=== PATIENT | female | born 1950 | race Caucasian/White ===

== ENCOUNTER 2018-04-03 12:59 | Outpatient (CLI) | payer MEDICARE | END 2018-04-03 13:00 | disposition home or self-care (01) | LOC: BICMAMMO 12:59 | PROVIDERS: ATTEND Internal Medicine Geriatric Medicine | DX: Z12.31 Encounter for screening mammogram for malignant neoplasm of breast (principal); R92.1 Mammographic calcification found on diagnostic imaging of breast; Z80.3 Family history of malignant neoplasm of breast | CPT/HCPCS: 77063; 77067 ==

== ENCOUNTER 2018-12-10 14:01 | Outpatient (CLI) | payer MEDICARE, OTHER ==
--- NOTE | 2018-12-10 14:43 | CT ---
CT OF THE ABDOMEN AND PELVIS WITHOUT CONTRAST: COMPARISON: None. HISTORY: Upper abdominal pain. TECHNIQUE: Multiple contiguous axial images were obtained in a CT of the abdomen and pelvis without contrast. C oronal reformats were performed. FINDINGS: There is a subtle hypodensity in the lower right lobe of the liver which is subcentimeter in size and too small to definitely characterize without IV contrast. The gallbladder, kidneys, adrenal glands, spleen, and pancreas are unremarkable, although evaluation is limited without IV contrast. No free air, free fluid, or stranding changes were seen in the abdomen or pelvis. The reproductive organs are unremarkable. The large and small bowel are unremarkable. The appendix is normal. Atherosclerotic calcifications are seen in the aorta. There is a small hiatal hernia. N o abdominal or pelvic lymphadenopathy are seen. Degenerative changes are seen in the spine. The visualized inferior thorax and abdominal wall soft t issues are unremarkable. IMPRESSION: 1. No evidence of acute intraabdominal/pelvic abnormality. 2. Nonspecific hypodensity in the right lobe of the liver. If clinically concerned or the patient h as elevated liver function tests, then a CT of the abdomen per liver mass protocol should be performe d for further evaluation. POS: SOFYA
== END 2018-12-10 14:02 | disposition home or self-care (01) ==
LOC: BICCT 14:01
PROVIDERS: ATTEND Internal Medicine Geriatric Medicine
DX: R10.30 Lower abdominal pain, unspecified (principal); K76.89 Other specified diseases of liver
CPT/HCPCS: 74176

== ENCOUNTER 2018-12-31 09:53 | Outpatient (CLI) | payer MEDICARE, OTHER ==
--- NOTE | 2018-12-31 11:27 | CT ---
CT ABDOMEN WITH AND WITHOUT IV CONTRAST CT PELVIS WITH IV CONTRAST: Date: 12/31/18 HISTORY: Hepatomegaly. Liver lesion on noncontrast exam of 12/10/18. Upper abdominal pain. COMPARISON: CT abdomen and pelvis without contrast of 12/10/18. FINDINGS: The lung bases are unremarkable. A small hiatal hernia is present. No calcified gallstones are noted. The spleen, pancreas, adrenal glands, and kidneys are normal. There is a retroaortic left renal vein . A 1.0 cm low density lesion is seen in the right lobe of the liver. No postcontrast enhancement is se en. This is consistent with a benign cyst. No free air, free fluid, or lymphadenopathy seen in the abdomen or pelvis. There are vascular calcifi cations without evidence of aneurysmal dilatation of the abdominal aorta. The small bowel loops are n ot abnormally dilated. A normal appearing appendix is seen. Uterus and ovaries are present. There are degenerative changes in the spine. IMPRESSION: 1. Small cyst in right lobe of liver. 2. Small hiatal hernia. POS: TPC
[2018-12-31] MEDS ORDERED: ISOVUE-370 76%-LOCM 1 ML ONE (14:37)
== END 2018-12-31 09:54 | disposition home or self-care (01) ==
LOC: BICCT 09:53
PROVIDERS: ATTEND Internal Medicine Geriatric Medicine
DX: R16.0 Hepatomegaly, not elsewhere classified (principal); K76.89 Other specified diseases of liver; K44.9 Diaphragmatic hernia without obstruction or gangrene
CPT/HCPCS: 72193; 74170; Q9966

== ENCOUNTER 2019-01-19 10:08 | Outpatient (CLI) | payer MEDICARE, OTHER ==
--- NOTE | 2019-01-19 11:02 | ULT ---
Abdominal Ultrasound: Multiple grayscale images of right upper quadrant obtained according to protocol. INDICATION: Pain, pancreatitis FINDINGS: Liver: Increased echogenicity, without focal lesion evident Gallbladder: Normal Gallbladder wall: Normal. Godoy's Sign: Negative Common bile duct is normal. Ascites: None Spleen: Unremarkable. Pancreas: Partially obscured by bowel content, limiting assessment. Kidneys: No acute abnormalities. Aorta/IVC: No acute process. IMPRESSION: No acute abnormalities. Increased echogenicity of the liver which may relate to hepatic steatosis.
== END 2019-01-19 10:09 | disposition home or self-care (01) ==
LOC: ULT 10:08
PROVIDERS: ATTEND Internal Medicine
DX: K85.10 Biliary acute pancreatitis without necrosis or infection (principal); R94.5 Abnormal results of liver function studies; R93.2 Abnormal findings on diagnostic imaging of liver and biliary tract
CPT/HCPCS: 76700

== ENCOUNTER 2020-05-30 10:45 | Outpatient (CLI) | payer MEDICARE, OTHER ==
--- NOTE | 2020-05-30 11:31 | BD ---
EXAM: DEXA bone density examination HISTORY: 70-year-old postmenopausal female for screening COMPARISON: None FINDINGS: L1--bone mineral density 0.712 g/sq cm; T score -2.5 L2--bone mineral density 0.799 g/sq cm; T score -2.1 L3--bone mineral density 0.748 g/sq cm; T score -3.1 L4--bone mineral density 0.766 g/sq cm; T score -2.7 Total L1-L4--bone mineral density 0.758 g/sq cm; T score -2.6 Left femoral neck--bone mineral density0.596; T score -2.3 Total proximal left femur--bone mineral density 0.756; T score -1.6 IMPRESSION: Osteoporosis.
--- NOTE | 2020-05-30 12:09 | MMO ---
Bilateral MAMMO Bilat Screen [facility]. CLINICAL HISTORY: Patient is 70 years old and is seen for screening. The patient has the following family history of breast cancer: mother, at age 72. The patient has no personal history of cancer. VIEWS: The views performed were: bilateral craniocaudal with tomosynthesis and bilateral mediolateral oblique with tomosynthesis. FILMS COMPARED: The present examination has been compared to a prior imaging study performed at [facility] on 04/03/2018. This study has been interpreted with the assistance of computer-aided detection. MAMMOGRAM FINDINGS: There are scattered fibroglandular densities. 10 mm nodule inner lower left breast, best seen on tomosynthesis. Recommend diagnostic left breast exam. In the right breast, there are no suspicious masses, calcifications or areas of architectural distortion. IMPRESSION: FINDING IN THE LEFT BREAST REQUIRES ADDITIONAL EVALUATION. ADDITIONAL IMAGING. THE RESULTS OF THIS EXAM WERE SENT TO THE PATIENT. ACR BI-RADS Category 0 - Incomplete: Need additional imaging evaluation. [facility] will notify the patient of the need for additional imaging services. MAMMOGRAPHY NOTE: 1. A negative mammogram report should not delay a biopsy if a dominant of clinically suspicious mass is present. 2. Approximately 10% to 15% of breast cancers are not detected by mammography. 3. Adenosis and dense breasts may obscure an underlying neoplasm. Reported by: RENEE ADKINS MD Electonically Signed: [id number]
== END 2020-05-30 10:46 | disposition home or self-care (01) ==
LOC: BICMAMMO 10:45
PROVIDERS: ATTEND Family Medicine
DX: Z12.31 Encounter for screening mammogram for malignant neoplasm of breast (principal); M81.6 Localized osteoporosis [Lequesne]; Z80.3 Family history of malignant neoplasm of breast
CPT/HCPCS: 77063; 77067; 77080

== ENCOUNTER 2020-06-02 09:34 | Outpatient (CLI) | payer MEDICARE, OTHER ==
--- NOTE | 2020-06-02 10:15 | MMO ---
Left Breast MAMMO Unilat Diag [facility]. CLINICAL HISTORY: Patient is 70 years old and is seen for additional evaluation requested from prior study. The patient has the following family history of breast cancer: mother, at age 72. The patient has no personal history of cancer. VIEWS: The views performed were: left craniocaudal spot compression with tomosynthesis; left mediolateral oblique spot compression with tomosynthesis; and left mediolateral with tomosynthesis. FILMS COMPARED: The present examination has been compared to prior imaging studies performed at [facility] on 04/03/2018, 05/30/2020 and 06/02/2020. This study has been interpreted with the assistance of computer-aided detection. MAMMOGRAM FINDINGS: There are scattered fibroglandular densities. There is an oval mass measuring 9 millimeters with obscured margins seen in the left breast at 9 o'clock. The mass was shown to be a lymph node on ultrasound. There are no suspicious masses, suspicious calcifications, or new areas of architectural distortion. IMPRESSION: THERE IS NO MAMMOGRAPHIC EVIDENCE OF MALIGNANCY. A ROUTINE FOLLOW-UP MAMMOGRAM IN 1 YEAR IS RECOMMENDED. THE RESULTS OF THIS EXAM WERE SENT TO THE PATIENT. ACR BI-RADS Category 2 - Benign finding MAMMOGRAPHY NOTE: 1. A negative mammogram report should not delay a biopsy if a dominant of clinically suspicious mass is present. 2. Approximately 10% to 15% of breast cancers are not detected by mammography. 3. Adenosis and dense breasts may obscure an underlying neoplasm. Reported by: BENTON HEBERT MD Electonically Signed: [id number]
--- NOTE | 2020-06-02 12:36 | ULT ---
LIMITED LEFT BREAST ULTRASOUND: Date: 06/02/2020 PROVIDED CLINICAL HISTORY: Abnormal mammogram. FINDINGS: Limited sonographic interrogation at the inner aspect of the left breast was performed in the region of mammographic concern. A intramammary lymph node is seen in this location, corresponding to the natasha mogram finding. No concerning sonographic findings are evident. IMPRESSION: BI-RADS Category 2 - Benign findings. Return to annual screening mammography recommended. POS: OFF
== END 2020-06-02 09:35 | disposition home or self-care (01) ==
LOC: BICMAMMO 09:34
PROVIDERS: ATTEND Family Medicine
DX: N63.20 Unspecified lump in the left breast, unspecified quadrant (principal)
CPT/HCPCS: 76642; 77065; G0279

== ENCOUNTER 2021-08-02 11:57 | Outpatient (CLI) | payer MEDICARE, OTHER | END 2021-08-02 11:58 | disposition home or self-care (01) | LOC: BICMAMMO 11:57 | PROVIDERS: ATTEND Family Medicine | DX: Z12.31 Encounter for screening mammogram for malignant neoplasm of breast (principal); Z80.3 Family history of malignant neoplasm of breast | CPT/HCPCS: 77063; 77067 ==

== ENCOUNTER 2022-08-08 13:08 | Outpatient (CLI) | payer MEDICARE, OTHER | END 2022-08-08 13:09 | disposition home or self-care (01) | LOC: BICRAD 13:08 | PROVIDERS: ATTEND Family Medicine | DX: J41.0 Simple chronic bronchitis (principal); E03.9 Hypothyroidism, unspecified; E11.65 Type 2 diabetes mellitus with hyperglycemia; R53.82 Chronic fatigue, unspecified; Z20.822 Contact with and (suspected) exposure to COVID-19 | CPT/HCPCS: 71046; 83036; 84436; 84480; U0003; U0005; 36415; 80053; 84443; 85025 ==

== ENCOUNTER 2022-10-24 13:43 | Outpatient (CLI) | payer MEDICARE, OTHER | END 2022-10-24 13:44 | disposition home or self-care (01) | LOC: BICMAMMO 13:43 | PROVIDERS: ATTEND Family Medicine | DX: Z12.31 Encounter for screening mammogram for malignant neoplasm of breast (principal); Z80.3 Family history of malignant neoplasm of breast | CPT/HCPCS: 77063; 77067 ==

== ENCOUNTER 2023-06-14 14:44 | Outpatient (CLI) | payer MEDICARE, OTHER | END 2023-06-14 14:45 | disposition home or self-care (01) | LOC: BICMAMMO 14:44 | PROVIDERS: ATTEND Family Medicine | DX: M81.6 Localized osteoporosis [Lequesne] (principal) | CPT/HCPCS: 77080 ==

== ENCOUNTER 2023-10-25 12:55 | Outpatient (CLI) | payer MEDICARE | END 2023-10-25 12:56 | disposition home or self-care (01) | LOC: BICMAMMO 12:55 | PROVIDERS: ATTEND Family Medicine | DX: Z12.31 Encounter for screening mammogram for malignant neoplasm of breast (principal); Z80.3 Family history of malignant neoplasm of breast | CPT/HCPCS: 77063; 77067 ==

== ENCOUNTER 2024-01-10 10:28 | Outpatient (CLI) | payer MEDICARE | END 2024-01-10 10:29 | disposition home or self-care (01) | LOC: BICULT 10:28 | PROVIDERS: ATTEND Family Medicine | DX: R09.89 Other specified symptoms and signs involving the circulatory and respiratory systems (principal); E11.65 Type 2 diabetes mellitus with hyperglycemia; E03.9 Hypothyroidism, unspecified | CPT/HCPCS: 36415; 80053; 83036; 84443; 85025; 93880 ==

== ENCOUNTER 2025-07-06 13:04 | Outpatient (CLI) | payer MEDICARE | END 2025-07-06 13:05 | disposition home or self-care (01) | LOC: BICMAMMO 13:04 | PROVIDERS: ATTEND Family Medicine | DX: M81.6 Localized osteoporosis [Lequesne] (principal) | CPT/HCPCS: 77080 ==